=== PATIENT | male | born 1960 | race Caucasian/White ===

== ENCOUNTER 2020-07-23 11:00 | Emergency (ER) | payer BC ==
--- NOTE | 2020-07-23 11:45 | RAD REPORT ---
EXAM DESCRIPTION: RAD - Hand Right 3 View - 07/23/2020 11:38 am CLINICAL HISTORY: PAIN COMPARISON: <Comparisons> FINDINGS: Soft tissue laceration is seen involving the distal tips of the third and fourth finger. N o fracture or underlying radiopaque foreign body seen.
[2020-07-23] MEDS ORDERED: BUPIVACAINE 0.5% PF 10 ML VIAL ONE (12:18)
[2020-07-23] MEDS ORDERED: LIDOCAINE 1% MPF 30 ML VIAL ONE (12:18)
--- NOTE | 2020-07-23 12:38 | EDPHYS ---
Physician Documentation [facility] Name: Henri Mehta Age: 60 yrs Sex: Male : 1960 Arrival Date: 07/23/2020 Time: 11:01 Bed 7 Private MD: ED Physician Ramo Wright HPI: 07/23 12:30 This 60 yrs old Male presents to ER via Ambulatory with complaints of alfred Laceration. 12:30 The patient or guardian reports pain, swelling, tenderness. The complaints affect the alfred right hand diffusely, palmar aspect of distal phalanx of right ring finger and palmar aspect of distal phalanx of right middle finger. Context: The problem was sustained at home. Onset: The symptoms/episode began/occurred just prior to arrival. Modifying factors: The symptoms are alleviated by nothing, the symptoms are aggravated by movement, dependent position. Associated signs and symptoms: The patient has no apparent associated signs or symptoms. Severity of symptoms: At their worst the symptoms were mild, in the emergency department the symptoms are unchanged. The patient has not experienced similar symptoms in the past. Historical: - Allergies: 11:08 Sulfa (Sulfonamide Antibiotics); bp - PMHx: 11:08 HIV; bp - Immunization history:: Last tetanus immunization: unknown. - Social history:: Smoking status: Patient denies any tobacco usage or history of. - Family history:: not pertinent. ROS: 12:30 Constitutional: Negative for fever, chills, and weight loss, Eyes: Negative for injury, alfred pain, redness, and discharge, ENT: Negative for injury, pain, and discharge, Neck: Negative for injury, pain, and swelling, Cardiovascular: Negative for chest pain, palpitations, and edema, Respiratory: Negative for shortness of breath, cough, wheezing, and pleuritic chest pain, Abdomen/GI: Negative for abdominal pain, nausea, vomiting, diarrhea, and constipation, Back: Negative for injury and pain, : Negative for injury, bleeding, discharge, and swelling, Skin: Negative for injury, rash, and discoloration, Neuro: Negative for headache, weakness, numbness, tingling, and seizure, Psych: Negative for depression, anxiety, suicide ideation, homicidal ideation, and hallucinations, Allergy/Immunology: Negative for hives, rash, and allergies, Endocrine: Negative for neck swelling, polydipsia, polyuria, polyphagia, and marked weight changes, Hematologic/Lymphatic: Negative for swollen nodes, abnormal bleeding, and unusual bruising. 12:30 MS/extremity: Positive for decreased range of motion, laceration, pain, of the palmar aspect of distal phalanx of right ring finger and palmar aspect of distal phalanx of right middle finger. Exam: 12:30 Constitutional: This is a well developed, well nourished patient who is awake, alert, alfred and in no acute distress. Head/Face: Normocephalic, atraumatic. Eyes: Pupils equal round and reactive to light, extra-ocular motions intact. Lids and lashes normal. Conjunctiva and sclera are non-icteric and not injected. Cornea within normal limits. Periorbital areas with no swelling, redness, or edema. ENT: Nares patent. No nasal discharge, no septal abnormalities noted. Tympanic membranes are normal and external auditory canals are clear. Oropharynx with no redness, swelling, or masses, exudates, or evidence of obstruction, uvula midline. Mucous membranes moist. Neck: Trachea midline, no thyromegaly or masses palpated, and no cervical lymphadenopathy. Supple, full range of motion without nuchal rigidity, or vertebral point tenderness. No Meningismus. Chest/axilla: Normal chest wall appearance and motion. Nontender with no deformity. No lesions are appreciated. Cardiovascular: Regular rate and rhythm with a normal S1 and S2. No gallops, murmurs, or rubs. Normal PMI, no JVD. No pulse deficits. Respiratory: Lungs have equal breath sounds bilaterally, clear to auscultation and percussion. No rales, rhonchi or wheezes noted. No increased work of breathing, no retractions or nasal flaring. Abdomen/GI: Soft, non-tender, with normal bowel sounds. No distension or tympany. No guarding or rebound. No evidence of tenderness throughout. Back: No spinal tenderness. No costovertebral tenderness. Full range of motion. Male : Normal genitalia with no discharge or lesions. Skin: Warm, dry with normal turgor. Normal color with no rashes, no lesions, and no evidence of cellulitis. Neuro: Awake and alert, GCS 15, oriented to person, place, time, and situation. Cranial nerves II-XII grossly intact. Motor strength 5/5 in all extremities. Sensory grossly intact. Cerebellar exam normal. Normal gait. Psych: Awake, alert, with orientation to person, place and time. Behavior, mood, and affect are within normal limits. 12:30 Musculoskeletal/extremity: Extremities: laceration, pain, ROM: full active range of motion, full passive range of motion, Circulation is intact in all extremities. Sensation intact. Compartment Syndrome exam of affected extremity: is normal. Vital Signs: 11:01 BP 118 / 71; Pulse 65; Resp 16; Temp 98; Pulse Ox 99% ; bp 12:08 BP 128 / 70; Pulse 61; Resp 18; Pulse Ox 100% on R/A; zb 13:09 BP 105 / 72; Pulse 65; Resp 18; Pulse Ox 100% on R/A; zb 14:00 BP 114 / 74; Pulse 62; Resp 18; Pulse Ox 100% on R/A; zb Laceration: 12:30 Wound Repair of 3cm ( 1.2in ) subcutaneous laceration to palmar aspect of distal alfred phalanx of right middle finger and palmar aspect of distal phalanx of right ring finger. Skin/tissue flap noted.. Distal neuro/vascular/tendon intact. Anesthesia: Digital block administered with 5 mls of 1% lidocaine, Digital block administered with 5 mls of 0.5% marcaine. Wound prep: Moderate cleansing with betadine by wy. Skin closed with 8 5-0 Prolene using interrupted sutures and sterile technique. Dressed with Neosporin, non-adherent dressing. Patient tolerated well. MDM: 11:15 Patient medically screened. [facility] 12:34 Differential diagnosis: open fracture. Data reviewed: vital signs, nurses notes, [facility] radiologic studies, plain films. Data interpreted: senior peoplesoft developer: not applicable for this patient encounter. rate is 65 beats/min, rhythm is regular, Pulse oximetry: on room air is 99 %. Test interpretation: by ED physician or midlevel provider: plain radiologic studies. Counseling: I had a detailed discussion with the patient and/or guardian regarding: the historical points, exam findings, and any diagnostic results supporting the discharge/admit diagnosis, radiology results. 07/23 11:04 Order name: XRAY Hand RIGHT 3 View; Complete Time: 12:27 bp 07/23 12:29 Order name: Suture Tray at Bedside; Complete Time: 12:41 [facility] Administered Medications: 12:30 Drug: Lidocaine (1 %) 5 ml {Note: AT B/S FOR LMP.} Volume: 5 ml; Route: Infiltration; bp 13:30 Follow up: Response: No adverse reaction zb 12:30 Drug: Bupivacaine (0.5 %) 5 ml {Note: AT B/S.} Volume: 10 ml; Route: Infiltration; bp 13:30 Follow up: Response: No adverse reaction zb 12:30 Drug: Neosporin Ointment 1 application Route: Topical; Site: affected area; bp 14:09 Follow up: Response: No adverse reaction zb 12:40 Drug: KeFLEX 500 mg Route: PO; zb 13:29 Follow up: Response: No adverse reaction zb Disposition: 07/23/20 12:37 Discharged to Home. Impression: Laceration without foreign body of right hand - 3rd and 4th volar tips. - Condition is Stable. - Discharge Instructions: Laceration Care, Adult, Laceration Care, Adult, [id number]. - Prescriptions for Keflex 500 mg Oral Capsule - take 1 capsule by ORAL route every 6 hours for 7 days; 28 capsule. Tylenol- Codeine #3 300-30 mg Oral Tablet - take 2 tablets by ORAL route every 6 hours As needed; 24 tablet. - Medication Reconciliation Form, Thank You Letter, Antibiotic Education, Prescription Opioid Use form. - Follow up: Private Physician; When: 2 - 3 days; Reason: Recheck today's complaints, Re-evaluation by your physician. Follow up: Berry Garcia MD; When: 1 - 2 days; Reason: Recheck today's complaints, Re-evaluation by your physician. - Problem is new. - Symptoms have improved. Signatures: Dispatcher [employer] EDMS Ramo Wright MD MD cha Peltier, Brian, RN RN Regla Hernandez RN RN zb Corrections: (The following items were deleted from the chart) 11:08 11:05 Allergies: No Known Allergies; bp bp 11:08 11:05 Home Meds: None; bp bp 11:08 11:05 PMHx: None; bp bp 13:59 12:37 07/23/2020 12:37 Discharged to Home. Impression: Laceration without foreign body zb of right hand - 3rd and 4th volar tips. Condition is Stable. Forms are Medication Reconciliation Form, Thank You Letter, Antibiotic Education, Prescription Opioid Use. Follow up: Private Physician; When: 2 - 3 days; Reason: Recheck today's complaints, Re-evaluation by your physician. Follow up: Berry Garcia; When: 1 - 2 days; Reason: Recheck today's complaints, Re-evaluation by your physician. Problem is new. Symptoms have improved. alfred
--- NOTE | 2020-07-23 12:38 | ER ---
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 Coronavirus screen: At this time, the client does not indicate any symptoms associated with coronavirus-19. Ebola Screen: No symptoms or risks identified at this time. Complicating Factors: There are no complicating factors for this patient. Initial Sepsis Screen: Does the patient meet any 2 criteria? No. Patient's initial sepsis screen is negative. Does the patient have a suspected source of infection? No. Patient's initial sepsis screen is negative. Risk Assessment: Do you want to hurt yourself or someone else? Patient reports no desire to harm self or others. Onset of symptoms was July 23, 2020 at 10:40. 11:01 Method Of Arrival: Ambulatory bp 11: Acuity: SUNG 3 bp Triage Assessment: 11:08 General: Appears distressed, uncomfortable, Behavior is cooperative, appropriate for bp age, agitated, anxious. Pain: Complains of pain in right hand. EENT: No deficits noted. Neuro: No deficits noted. Cardiovascular: Rhythm is sinus rhythm. Respiratory: No deficits noted. GI: No signs and/or symptoms were reported involving the gastrointestinal system. : No signs and/or symptoms were reported regarding the genitourinary system. Derm: No deficits noted. Musculoskeletal: No deficits noted. Injury Description: Laceration sustained to right hand. Historical: - Allergies: 11:08 Sulfa (Sulfonamide Antibiotics); bp - PMHx: 11:08 HIV; bp - Immunization history:: Last tetanus immunization: unknown. - Social history:: Smoking status: Patient denies any tobacco usage or history of. - Family history:: not pertinent. Screenin:10 Abuse screen: Denies threats or abuse. Denies injuries from another. Nutritional bp screening: No deficits noted. Tuberculosis screening: No symptoms or risk factors identified. Fall Risk None identified. Assessment: 11:06 General: Appears distressed, uncomfortable, slender, well groomed, Behavior is zb cooperative, appropriate for age, anxious. Pain: Denies pain. Complains of pain in palmar aspect of distal phalanx of right ring finger and palmar aspect of distal phalanx of right middle finger. Neuro: No deficits noted. Level of Consciousness is awake, alert, obeys commands, Oriented to person, place, time, situation. Cardiovascular: No deficits noted. Denies chest pain, diaphoresis. Respiratory: Airway is patent Trachea midline Respiratory effort is even, unlabored. GI: No deficits noted. Abdomen is flat. : No signs and/or symptoms were reported regarding the genitourinary system. EENT: No signs and/or symptoms were reported regarding the EENT system. Derm: Skin is healthy with good turgor, Skin is pale. Musculoskeletal: Circulation, motion, and sensation intact. Injury Description: Laceration sustained to palmar aspect of distal phalanx of right ring finger and palmar aspect of distal phalanx of right middle finger is clean, was sustained less than 30 minutes ago. is bleeding moderately. 11:09 General: SEE TRIAGE NOTE. Injury Description: Laceration sustained to palmar aspect of bp distal phalanx of right ring finger and palmar aspect of distal phalanx of right middle finger is not bleeding, was sustained 30-60 minutes ago. is bleeding a small amount. 12:00 Reassessment: Patient appears in no apparent distress at this time. Patient and/or zb family updated on plan of care and expected duration. Pain level reassessed. Patient is alert, oriented x 3, equal unlabored respirations, skin warm/dry/pink. 13:14 Reassessment: d/c pending provider sutures. ph Vital Signs: 11:01 BP 118 / 71; Pulse 65; Resp 16; Temp 98; Pulse Ox 99% ; bp 12:08 BP 128 / 70; Pulse 61; Resp 18; Pulse Ox 100% on R/A; zb 13:09 BP 105 / 72; Pulse 65; Resp 18; Pulse Ox 100% on R/A; zb 14:00 BP 114 / 74; Pulse 62; Resp 18; Pulse Ox 100% on R/A; zb ED Course: 11:01 Patient arrived in ED. bp 11:03 Triage completed. bp 11:06 Regla Segovia, RN is Primary Nurse. zb 11:08 Arm band placed on. bp 11:10 Patient has correct armband on for positive identification. Bed in low position. Call bp light in reach. Side rails up X2. 11:15 Ramo Wright MD is Attending Physician. alfred 11:38 XRAY Hand RIGHT 3 View In Process Unspecified. EDMS 12:36 Berry Garcia MD is Referral Physician. alfred 14:00 No provider procedures requiring assistance completed. Patient did not have IV access zb during this emergency room visit. Administered Medications: 12:30 Drug: Lidocaine (1 %) 5 ml {Note: AT B/S FOR LMP.} Volume: 5 ml; Route: Infiltration; bp 13:30 Follow up: Response: No adverse reaction zb 12:30 Drug: Bupivacaine (0.5 %) 5 ml {Note: AT B/S.} Volume: 10 ml; Route: Infiltration; bp 13:30 Follow up: Response: No adverse reaction zb 12:30 Drug: Neosporin Ointment 1 application Route: Topical; Site: affected area; bp 14:09 Follow up: Response: No adverse reaction zb 12:40 Drug: KeFLEX 500 mg Route: PO; zb 13:29 Follow up: Response: No adverse reaction zb Outcome: 12:37 Discharge ordered by . alfred 13:59 Patient left the ED. zb 14:00 Discharged to home ambulatory. zb 14:00 Condition: good 14:00 Discharge instructions given to patient, Instructed on discharge instructions, follow up and referral plans. medication usage, Demonstrated understanding of instructions, follow-up care, medications, Prescriptions given X 2. Signatures: Dispatcher [employer] EDKY Ramo Wright MD MD cha Hall, Patricia, RN RN Evaristo Alvarez RN RN bp Brown, Zipporah, RN RN zb Corrections: (The following items were deleted from the chart) 11:08 11:05 Allergies: No Known Allergies; bp bp 11:08 11:05 Home Meds: None; bp bp 11:08 11:05 PMHx: None; bp bp 11:21 11:06 General: Appears in no apparent distress. uncomfortable, slender, well groomed, zb Behavior is cooperative, appropriate for age, anxious, zb
[2020-07-23] MEDS ORDERED: CEPHALEXIN 250 MG CAP ONE (12:50)
[2020-07-23 14:44] VITALS: TEMP 98
[2020-07-23 14:45] VITALS: O2SAT 100
[2020-07-23 14:47] VITALS: BP 105/72
== END 2020-07-23 13:59 | disposition home or self-care (01) ==
LOC: ER 11:00
PROC: 0JQJ0ZZ Repair Right Hand Subcutaneous Tissue and Fascia, Open Approach (ICD-10-PCS; principal; 2020-07-23)
DX: S61.212A Laceration without foreign body of right middle finger without damage to nail, initial encounter (principal); W29.8XXA Contact with other powered hand tools and household machinery, initial encounter; Y93.9 Activity, unspecified; Y92.009 Unspecified place in unspecified non-institutional (private) residence as the place of occurrence of the external cause; Z88.2 Allergy status to sulfonamides; Z21 Asymptomatic human immunodeficiency virus [HIV] infection status
CPT/HCPCS: 99284

== ENCOUNTER 2021-08-19 15:18 | Emergency (ER) | payer BC ==
--- OUTSIDE RECORDS SUMMARY | 2021-08-19 15:21 | XMS REPORT | Continuity of Care Document ---
:1960 Author Organization [facility] t Address [address] [place] [id number] Care Team Providers Name Role Phone Ana_Sari Attending Clinician Unavailable Berna PROCTOR Attending Clinician Unavailable Ana_Sari Admitting Clinician Unavailable Payers Payer Name Policy Type Policy Number Effective Date Expiration Date S our[place] [id number] 2017 00:00:00 [facility] [id number] 2017 00:00:00 [place] Problems Condition Condition Condition Status Onset Resolution Last Treating Co mments Source Name Details Category Date Date Treatment Clinician Date Lower Lower Problem Active 2020-09 [facility] urinary Urinary 0-22 Family tract Tract 00:00: Practic symptoms Symptoms 00 e due to Due to benign Benign prostatic Prostatic hypertroph Hypertroph y y Chronic Chronic Problem Active 2020-09 [facility] insomnia Insomnia 0-22 Family 00:00: Practic 00 e Genital Genital Problem Active 2020-09 [facility] herpes Herpes 0-21 Family simplex Simplex 00:00: Practic type 2 Type 2 00 e Mixed Mixed Problem Active [facility] hyperlipid Hyperlipid 4-07 [facility] emia emia 00:00: Practic 00 e Carcinoma Carcinoma Problem Active Earlene lana of skin of of Skin of 4-07 [facility] upper limb Upper Limb 00:00: Pr actic 00 e 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 P ractice Medications Ordered Filled Start Stop Current Ordering Indication Dosage Frequency Signature Comments Components Source Medication Medication Date Date Medication? Clinician (SIG) Name Name famciclovir famciclovir No famciclovi [facility] 250 mg 250 mg r 250 mg Family tablet TK 1 tablet TK 1 tablet TK Practic T PO BID T PO BID 1 T PO BID e Juluca 50 Juluca 50 No Juluca 50 [facility] mg-25 mg mg-25 mg mg-25 mg Fam tabby tablet TAKE tablet TAKE tablet Practic 1 TABLET BY 1 TABLET BY TAKE 1 e MOUTH EVERY MOUTH EVERY TABLET BY DAY DAY MOUTH EVERY DAY Immunizations Ordered Immunization Filled Immunization Date Status Commen ts Source Name Name influenza, influenza, 2021-07-[address] [facility] recombinant, recombinant, 13:07:00 Practice quadrIvalent,injecta quadrIvalent,injecta ble, preservative ble, preservative free free SARS-COV-2 SARS-COV-2 2020-12-[address] [facility] (COVID-19) vaccine, (COVID-19) vaccine, 00:00:00 Practice UNSPECIFIED UNSPECIFIED SARS-COV-2 SARS-COV-2 2020-11-[address] [facility] (COVID-19) vaccine, (COVID-19) vaccine, 00:00:00 Practice UNSPECIFIED UNSPECIFIED Vital Signs Vital Name Observation Time Observation Value Comments Source BP Diastolic 2021-07-04 00:00:00 72 mm[Hg] [facility] Height 2021-07-04 00:00:00 67 [in_i] [facility] BMI (Body Mass 2021-07-04 00:00:00 22.1 kg/m2 [facility] Index) Practice BP Systolic 2021-07-04 00:00:00 120 mm[Hg] [facility] Body Weight 2021-07-04 00:00:00 141.2 [lb_av] [facility] Procedures Procedure Date / Time Performed Performing Clinician Liz e Colon Surgery [facility] Sinus Surgery [facility] Procedure Practice Plan of Care Planned Activity Planned Date Details Comments Source Diagnostic Test 2021-07-04 HIV-1 RNA, [facility] Fami ly Pending 00:00:00 quantitative, PCR, Practice serum or plasma [code = HIV-1 RNA, quantitative, PCR, serum or plasma] Diagnostic Test 2021-07-04 CBC w/ auto diff [facility] Family Pending 00:00:00 [code = CBC w/ auto Practice diff] Diagnostic Test 2021-07-04 CMP, serum or plasma [facility] Family Pending 00:00:00 [code = CMP, serum Practice or plasma] Diagnostic Test 2021-07-04 lymphocyte subset [facility] Family Pending 00:00:00 panel, serum [code = Practic e lymphocyte subset panel, serum] Diagnostic Test 2021-07-04 lipid panel, serum [facility] Family Pending 00:00:00 [code = lipid panel, Practic e serum] Future Appointment 2021-10-02 Trevor Perez, [address] Family 14:45:00 [facility] ; Practice [address], [place] [address] Encounters Start End Encounter Admission Attending Care Care Encounter Source Date/Time Date/Time Type Type Clinicians Facility Department ID 2021-07-14 2021-07-14 Outpatient Flores_A VFP VFP [id number] [facility] 12:05:00 12:05:00 [id number] Family Practic e 2021-07-04 2021-07-04 Outpatient Flores_A VFP VFP [id number] [facility] 01:16:00 01:16:00 [id number] Family Practic e 2021-07-04 2021-07-04 Trevor VFP [place] - [id number] [facility] 00:00:00 00:00:00 [facility] Family PerezAlicia - Janis love MD: [id number] [facility] [place] [address] , [address], [place] [address] , Ph. 2021-04-04 2021-04-04 Outpatient Flores_A VFP VFP [id number] [id number] [facility] 02:30:00 02:30:00 [id number] Family Practic e 2021-04-04 2021-04-04 Outpatient Flores_A VFP VFP [id number] [facility] 02:30:00 02:30:00 [id number] Family Practic e 2020-12-18 2020-12-18 Outpatient Fredo PROCTOR, [facility] [id number] [facility] 13:50:00 13:50:00 DAMION vargas [facility] 2020-11-20 2020-11-20 Outpatient [facility] [id number] [facility] 13:30:00 13:30:00 [facility] Results This patient has no known results.
[2021-08-19] MEDS ORDERED: BUPIVACAINE 0.5% PF 10 ML VIAL ONE (16:10)
--- NOTE | 2021-08-19 17:10 | RAD REPORT ---
EXAM DESCRIPTION: RAD - Hand Right 3 View - 08/19/2021 4:47 pm CLINICAL HISTORY: Right hand pain status post injury FINDINGS: No fracture or dislocation is seen. 1 millimeter density within the dorsal soft tissues of the second DIP equivocal for foreign body and should be correlated clinically
--- NOTE | 2021-08-19 18:31 | ER ---
Nurse's Notes [facility] Name: Henri Mehta Age: 61 yrs Sex: Male : 1960 Arrival Date: 08/19/2021 Time: 15:22 Bed 11 Private MD: Diagnosis: Finger Laceration Presentation: 08/19 15:41 Chief complaint: Patient states: I was using my trimmer operator today and my right index ld1 finger got cut. Coronavirus screen: At this time, the client does not indicate any symptoms associated with coronavirus-19. Ebola Screen: No symptoms or risks identified at this time. Complicating Factors: There are no complicating factors for this patient. Initial Sepsis Screen: Does the patient meet any 2 criteria? No. Patient's initial sepsis screen is negative. Does the patient have a suspected source of infection? No. Patient's initial sepsis screen is negative. Risk Assessment: Do you want to hurt yourself or someone else? Patient reports no desire to harm self or others. Onset of symptoms was August 19, 2021 at 15:42. 15:41 Method Of Arrival: Ambulatory ld1 15:41 Acuity: SUNG 3 ld1 Triage Assessment: 15:42 General: Appears in no apparent distress. uncomfortable, Behavior is cooperative, ld1 appropriate for age, anxious. Pain: Complains of pain in dorsal aspect of distal phalanx of right index finger and dorsal aspect of middle phalanx of right index finger Pain does not radiate. Pain currently is 8 out of 10 on a pain scale. Quality of pain is described as throbbing, Pain began suddenly, Is continuous. EENT: No signs and/or symptoms were reported regarding the EENT system. Neuro: Level of Consciousness is awake, alert, obeys commands, Oriented to person, place, time, situation, Appropriate for age. Cardiovascular: Capillary refill < 3 seconds Patient's skin is warm and dry. Respiratory: Airway is patent Respiratory effort is even, unlabored, Respiratory pattern is regular, symmetrical. GI: Abdomen is flat, non-distended. : No signs and/or symptoms were reported regarding the genitourinary system. Derm: No signs and/or symptoms reported regarding the dermatologic system. Musculoskeletal: No signs and/or symptoms reported regarding the musculoskeletal system. Injury Description: Laceration sustained to dorsal aspect of distal phalanx of right index finger, dorsal aspect of middle phalanx of right index finger and right index fingernail. Historical: - Allergies: 15:42 Sulfa (Sulfonamide Antibiotics); ld1 - Home Meds: 15:42 Juluca 50-25 mg oral tab 1 tab once daily [Active]; ld1 - PMHx: 15:42 HIV; ld1 - PSHx: 15:42 None; ld1 - Immunization history:: Adult Immunizations up to date, Client reports receiving the 2nd dose of the Covid vaccine. - Social history:: Smoking status: Patient denies any tobacco usage or history of. Patient/guardian denies using alcohol. Vital Signs: 15:41 BP 146 / 89; Pulse 96; Resp 19; Temp 98.3(O); Pulse Ox 97% on R/A; Weight 63.96 kg; ld1 Height 5 ft. 7 in. (170.18 cm); Pain 8/10; 15:41 Body Mass Index 22.08 (63.96 kg, 170.18 cm) ld1 ED Course: 15:22 Patient arrived in ED. mr 15:42 Triage completed. ld1 15:42 Arm band placed on right wrist. 1 15:47 Mary Liu, RN is Primary Nurse. [facility] 15:54 Jayson Oviedo PA is PHCP. [facility] 15:54 Ramo Wright MD is Attending Physician. [facility] 16:47 Hand Right 3 View XRAY In Process Unspecified. EDMS 17:56 Aluminum finger splint applied to palmar aspect of middle phalanx of right index em1 finger. Wound care: was cleaned with Hibiclens. Wound care: was wet to dry dressing. 18:30 Tony Velazquez MD is Referral Physician. [facility] Administered Medications: No medications were administered Outcome: 18:30 Discharge ordered by . [facility] 18:35 Patient left the ED. [facility] Signatures: Dispatcher [employer] EDMS Jayson Oviedo PA PA jannet Mark Ellie Long, Robert em1 Rosamaria Orona RN RN [facility] Mary Liu RN RN [facility]
--- NOTE | 2021-08-19 18:31 | EDPHYS ---
Physician Documentation [facility] Name: Henri Mehta Age: 61 yrs Sex: Male : 1960 Arrival Date: 08/19/2021 Time: 15:22 Bed 11 Private MD: ED Physician Ramo Wright HPI: 08/19 15:54 This 61 yrs old Male presents to ER via Ambulatory with complaints of Laceration - jmm Finger. 15:54 The patient or guardian reports injury, a laceration. Onset: The symptoms/episode jmm began/occurred acutely, just prior to arrival. Modifying factors: The symptoms are alleviated by nothing, the symptoms are aggravated by nothing. Associated signs and symptoms: Pertinent negatives: decreased sensation distally, fever, numbness distally, tingling distally. Is a 61-year-old male with history of HIV the presents emerged department with complaints of laceration to the right index finger. This occurred while the patient was using a heel seat trimmer. Patient states that he saw a large piece of how he described meat. Patient cover the wound quickly. Patient states he is up-to-date on tetanus immunization.. Historical: - Allergies: 15:42 Sulfa (Sulfonamide Antibiotics); ld1 - Home Meds: 15:42 Juluca 50-25 mg oral tab 1 tab once daily [Active]; ld1 - PMHx: 15:42 HIV; ld1 - PSHx: 15:42 None; ld1 - Immunization history:: Adult Immunizations up to date, Client reports receiving the 2nd dose of the Covid vaccine. - Social history:: Smoking status: Patient denies any tobacco usage or history of. Patient/guardian denies using alcohol. ROS: 15:54 Constitutional: Negative for fever, chills, and weight loss, Cardiovascular: Negative jmm for chest pain, palpitations, and edema, Respiratory: Negative for shortness of breath, cough, wheezing, and pleuritic chest pain. 15:54 MS/extremity: Positive for injury or acute deformity, pain. 15:54 All other systems are negative. Exam: 15:54 Constitutional: This is a well developed, well nourished patient who is awake, alert, jmm and in no acute distress. Head/Face: atraumatic. Eyes: EOMI, no conjunctival erythema appreciated ENT: Moist Mucus Membranes Neck: Trachea midline, Supple Chest/axilla: Normal chest wall appearance and motion. Cardiovascular: Regular rate and rhythm. No edema appreciated Respiratory: Normal respirations, no respiratory distress appreciated Abdomen/GI: Non distended, soft Back: Normal ROM 15:54 Musculoskeletal/extremity: Full range of motion full range of motion and strength against resistance at the right index PIP and DIP. 15:54 Skin: Macerated skin macerated skin noted to the mid and distal phalanx right. 15:54 Neuro: Motor: is normal. Vital Signs: 15:41 BP 146 / 89; Pulse 96; Resp 19; Temp 98.3(O); Pulse Ox 97% on R/A; Weight 63.96 kg; ld1 Height 5 ft. 7 in. (170.18 cm); Pain 8/10; 15:41 Body Mass Index 22.08 (63.96 kg, 170.18 cm) ld1 MDM: 15:54 Patient medically screened. [place] 18:29 Data reviewed: vital signs, nurses notes. Counseling: I had a detailed discussion with [facility] the patient and/or guardian regarding: the historical points, exam findings, and any diagnostic results supporting the discharge/admit diagnosis, radiology results, the need for outpatient follow up, to return to the emergency department if symptoms worsen or persist or if there are any questions or concerns that arise at home. 18:29 ED course: Physical exam findings did not show signs of tendon injury. Patient advised [facility] follow with hand surgery and prescribed antibiotics. Patient does state that he is in [facility].. 08/19 16:29 Order name: Hand Right 3 View XRAY; Complete Time: 17:12 [facility] 08/19 17:33 Order name: Misc. Order: clean finger, wet to dry; Complete Time: 17:56 [facility] Administered Medications: No medications were administered Disposition: 08/20 10:33 Co-signature as Attending Physician, Ramo Wright MD I agree with the assessment and [place] plan of care. Disposition Summary: 08/19/21 18:30 Discharge Ordered Location: Home [facility] Condition: Stable [facility] Diagnosis - Finger Laceration [facility] Followup: [facility] - With: Tony Velazquez MD - When: 2 - 3 days - Reason: Recheck today's complaints, Continuance of care, Re-evaluation by your physician Discharge Instructions: - Discharge Summary Sheet jmm - Nonsutured Laceration Care [facility] Forms: - Medication Reconciliation Form jmjannet - Thank You Letter rach - Antibiotic Education rach - Prescription Opioid Use [facility] Prescriptions: - Cephalexin 500 mg Oral Capsule - take 1 capsule by ORAL route every 6 hours for 10 days; 40 capsule; Refills: 0, jmm Product Selection Permitted Signatures: Dispatcher [employer] EDRamo Caballero MD MD cha Mickail, Joel, PA PA jmm Dibbern, Lauren, RN RN ld1
[2021-08-19 18:53] VITALS: BP 146/89; TEMP 98.3; O2SAT 97
== END 2021-08-19 18:35 | disposition home or self-care (01) ==
LOC: ER 15:18
DX: S61.210A Laceration without foreign body of right index finger without damage to nail, initial encounter (principal); Z21 Asymptomatic human immunodeficiency virus [HIV] infection status; Z88.2 Allergy status to sulfonamides
CPT/HCPCS: 99284

== ENCOUNTER 2023-01-12 19:55 | Emergency (ER) | payer BC ==
--- OUTSIDE RECORDS SUMMARY | 2023-01-12 20:37 | XMS REPORT | Continuity of Care Document ---
:1960 Author Organization [facility] t Address [address] [place] [address] Care Team Providers Name Role Phone Ana_Sari Attending Clinician Unavailable DAMION PROCTOR Attending Clinician Unavailable Ana_Sari Admitting Clinician Unavailable Payers Payer Name Policy Type Policy Number Effective Date Expiration Date [place] [id number] 2017 00:00:00 BCBS HEALTH [id number] 2017 00:00:00 [place] Problems Condition Condition Condition Status Onset Resolution Last Treating Co mments Source Name Details Category Date Date Treatment Clinician Date Polyarthro Polyarthro Problem Active 2021-09 [facility] uri uri 1-07 Family 00:00: Practic 00 e 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 5-19 Family disturbanc Disturbanc 00:00: Pr actic e e 00 e Lower Lower Problem Active 2020-09 [facility] urinary Urinary 0-22 Family tract Tract 00:00: Practic symptoms Symptoms 00 e due to Due to benign Benign prostatic Prostatic hypertroph Hypertroph y y Chronic Chronic Problem Active 2020-09 [facility] insomnia Insomnia 0-22 Family 00:00: Practic 00 e Genital Genital Problem Active 2020-09 [facility] herpes Herpes 0-21 Family simplex Simplex 00:00: Practic type 2 Type 2 00 e Mixed Mixed Problem Active [facility] hyperlipid Hyperlipid 4-07 Jose deluca emia emia 00:00: Practic 00 e Carcinoma Carcinoma Problem Active Earlene lana of skin of of Skin of 4-07 Fa sandrine upper limb Upper Limb 00:00: Pr actic 00 e 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 1-01 sandrine ciency ciency 00:00: Practic virus Virus 00 e infection Infection Allergies, Adverse Reactions, Alerts Allergy Allergy Status Severity Reaction(s) Onset Inactive Treating Comm ents Source Name Type Date Date Clinician SULFA Drug Active Hives 2017- [facility] (SULFONA Class 4-03 ity of MIDE 00:00: [place] ANTIBIOT 00 Medical I[facility]) Branch SULFA Allergy Active [facility] (SULFONA to Family [facility] substanc Practic ANTIBIOT e e ICS) Social History Smoking Status Start Date Stop Date Source Never Smoker [facility] Medications Ordered Filled Start Stop Current Ordering Indication Dosage Frequency Signature Comments Components Source Medication Medication Date Date Medication? Clinician (SIG) Name Name famciclovir famciclovir No famciclovi Jean 250 mg 250 mg r 250 mg Family tablet TK 1 tablet TK 1 tablet TK Practic T PO BID T PO BID 1 T PO BID e Juluca 50 Juluca 50 No 1 Q1D Juluca 50 [facility] mg-25 mg mg-25 mg mg-25 mg Fam tabby tablet Take tablet Take tablet Practic 1 tablet 1 tablet Take 1 e every day every day tablet by oral by oral every day route for route for by oral 90 days. 90 days. route for 90 days. trazodone trazodone No trazodone [facility] 50 mg 50 mg 50 mg Family tablet TAKE tablet TAKE tablet Practic 1 TO 2 1 TO 2 TAKE 1 TO e TABLETS BY TABLETS BY 2 TABLETS MOUTH AT MOUTH AT BY MOUTH BEDTIME BEDTIME AT BEDTIME famciclovir famciclovir No famciclovi Jean 250 mg 250 mg r 250 mg Family tablet TK 1 tablet TK 1 tablet TK Practic T PO BID T PO BID 1 T PO BID e Juluca 50 Juluca 50 No Juluca 50 [facility] mg-25 mg mg-25 mg mg-25 mg Fam tabby tablet TAKE tablet TAKE tablet Practic 1 TABLET BY 1 TABLET BY TAKE 1 e MOUTH EVERY MOUTH EVERY TABLET BY DAY DAY MOUTH EVERY DAY Multi Multi No Multi [facility] Vitamin Vitamin Vitamin Family Practic e trazodone trazodone No flozodondonta [facility] 50 mg 50 mg 50 mg Family tablet Take tablet Take tablet Practic 1 -2 1 -2 Take 1 -2 e tablets po tablets po tablets po at bedtime at bedtime at bedtime for 30 days for 30 days for 30 days Immunizations Ordered Immunization Filled Immunization Date Status Commen ts Source Name Name COVID-19, mRNA, COVID-19, mRNA, 2021-07-25 Completed [facility] LNP-S, PF, 30 LNP-S, PF, 30 00:00:00 Practice mcg/0.3 mL dose mcg/0.3 mL dose (Pfizer-BioNTech) ([employer]-BioNTech) COVID-19, mRNA, COVID-19, mRNA, 2021-07-25 Completed [facility] Family LNP-S, PF, 30 LNP-S, PF, 30 00:00:00 Practice mcg/0.3 mL dose mcg/0.3 mL dose (Pfizer-BioNTech) (Pfizer-BioNTech) influenza, influenza, 2021-07-04 Completed [facility] recombinant, recombinant, 13:07:00 Practice quadrIvalent,injecta quadrIvalent,injecta ble, preservative ble, preservative free free influenza, influenza, 2021-07-04 Completed [facility] recombinant, recombinant, 13:07:00 Practice quadrIvalent,injecta quadrIvalent,injecta ble, preservative ble, preservative free free COVID-19 COVID-19 2020-12-17 Completed [facility] (SARS-COV-2) (SARS-COV-2) 00:00:00 Practice vaccine, unspecified vaccine, unspecified COVID-19 COVID-19 2020-12-17 Completed [facility] (SARS-COV-2) (SARS-COV-2) 00:00:00 Practice vaccine, unspecified vaccine, unspecified COVID-19 COVID-19 2020-11-17 Completed [facility] (SARS-COV-2) (SARS-COV-2) 00:00:00 Practice vaccine, unspecified vaccine, unspecified COVID-19 COVID-19 2020-11-17 Completed [facility] (SARS-COV-2) (SARS-COV-2) 00:00:00 Practice vaccine, unspecified vaccine, unspecified Vital Signs Vital Name Observation Time Observation Value Comments Source BP Diastolic 2022-07-20 00:00:00 78 mm[Hg] [facility] Height 2022-07-20 00:00:00 67 [in_i] [facility] BMI (Body Mass 2022-07-20 00:00:00 21 kg/m2 [facility] Family Index) Practice BP Systolic 2022-07-20 00:00:00 124 mm[Hg] [facility] Body Weight 2022-07-20 00:00:00 134 [lb_av] [facility] BP Diastolic 2022-01-29 00:00:00 62 mm[Hg] [facility] Practice Height 2022-01-29 00:00:00 67 [in_i] [facility] Practice BMI (Body Mass 2022-01-29 00:00:00 21.4 kg/m2 [facility] e Family Index) Practice BP Systolic 2022-01-29 00:00:00 106 mm[Hg] [facility] Practice Body Weight 2022-01-29 00:00:00 136.4 [lb_av] [facility] Practice BP Diastolic 2021-10-02 00:00:00 70 mm[Hg] [facility] Practice Height 2021-10-02 00:00:00 67 [in_i] [facility] Practice BMI (Body Mass 2021-10-02 00:00:00 22.2 kg/m2 [facility] e Family Index) Practice BP Systolic 2021-10-02 00:00:00 138 mm[Hg] [facility] Practice Body Weight 2021-10-02 00:00:00 142 [lb_av] [facility] Practice BP Diastolic 2021-07-04 00:00:00 72 mm[Hg] [facility] Practice Height 2021-07-04 00:00:00 67 [in_i] [facility] Practice BMI (Body Mass 2021-07-04 00:00:00 22.1 kg/m2 [facility] e Family Index) Practice BP Systolic 2021-07-04 00:00:00 120 mm[Hg] [facility] Body Weight 2021-07-04 00:00:00 141.2 [lb_av] [facility] Procedures Procedure Date / Time Performed Performing Clinician Sour e Colonoscopy 2015-08-02 00:00:00 [facility] ly Practice Colon Surgery [facility] Unlisted Px Accessory [facility] Fa sandrine Sinus Practice Plan of Care Planned Activity Planned Date Details Comments Source Diagnostic Test 2022-07-20 cd4 T-cells, blood [facility] Pending 00:00:00 [code = cd4 T-cells, Practic e blood] Diagnostic Test 2022-07-20 CBC w/ auto diff [facility] Pending 00:00:00 [code = CBC w/ auto Practice diff] Diagnostic Test 2022-07-20 CMP, serum or plasma [facility] Pending 00:00:00 [code = CMP, serum Practice or plasma] Diagnostic Test 2022-07-20 lipid panel, serum [facility] Pending 00:00:00 [code = lipid panel, Practic e serum] Diagnostic Test 2022-07-20 vitamin D, Jean Fami ly Pending 00:00:00 25-hydroxy, total, Practice serum [code = vitamin D, 25-hydroxy, total, serum] Diagnostic Test 2022-07-20 HIV 1 + 2, Jean Muhammad ly Pending 00:00:00 meaningful use set Practice [code = HIV 1 + 2, meaningful use set] Future Appointment 2023-01-29 Trevormarisela Sousaes, [address] 00:00:00 [facility] ; Practice [address], [place] [address] Encounters Start End Encounter Admission Attending Care Care Encounter Source Date/Time Date/Time Type Type Clinicians Facility Department ID 2022-10-29 2022-10-29 Outpatient Flores_A VFP VFP [id number] 5-20 [facility] 00:00:00 00:00:00 [id number] Family Practic e 2022-07-20 2022-07-20 Outpatient Flores_A VFP VFP [id number] 5-20 [facility] 00:00:00 00:00:00 [id number] Family Practic e 2022-07-20 2022-07-20 Trevor VFP [place] - [id number] [facility] 00:00:00 00:00:00 Indra [facility] Family PerezAlicia - Pracyael love MD: [id number] [place] - e Post [facility] bibi [address], [place] [address] , Ph. 2022-05-11 2022-05-11 Outpatient Flores_A VFP VFP [id number] 5-20 [facility] 00:00:00 00:00:00 [id number] Family Practic e 2022-04-03 2022-04-03 Outpatient Flores_A VFP VFP [id number] 5-20 [facility] 04:58:00 04:58:00 [id number] Family Practic e 2022-02-27 2022-02-27 Outpatient Flores_A VFP VFP [id number] 5-20 [facility] 05:54:00 05:54:00 [id number] Family Practic e 2022-01-29 2022-01-29 Trevor Flores_A VFP [place] - [id number] 0 [facility] 00:00:00 00:00:00 [facility] [id number] Family Alicia Perez MD: [id number] , [address], [place] [address] , Ph. 2022-01-28 2022-01-28 Outpatient Flores_A VFP VFP [id number] 5-20 [facility] 11:39:00 11:39:00 [id number] Family Practic e 2021-10-05 2021-10-05 Outpatient Flores_A VFP VFP [id number] 5-20 [facility] 11:35:00 11:35:00 [id number] Family Practic e 2021-10-02 2021-10-02 Trevor Flores_A VFP [place] - [id number] 0 [facility] 00:00:00 00:00:00 [facility] [id number] Family Alicia Perez MD: [id number] , [address], [place] [address] , Ph. 2021-08-22 2021-08-22 Outpatient Flores_A VFP VFP [id number] 5-20 [facility] 09:41:00 09:41:00 [id number] Family Practic e 2021-08-21 2021-08-21 Outpatient Flores_A VFP VFP [id number] 5-20 [facility] 11:41:00 11:41:00 [id number] Family Practic e 2021-07-14 2021-07-14 Outpatient Flores_A VFP VFP [id number] 5-20 [facility] 12:05:00 12:05:00 [id number] Family Practic e 2021-07-04 2021-07-04 Trevor Flores_A VFP [place] - [id number] 0 [place] 00:00:00 00:00:00 [facility] [id number] Family Alicia Perez MD: [id number] , [address], [place] [address] , Ph. 2021-04-042021-04-04 Outpatient Florgiancarlo_A VFP VFP [id number] 5-20 [facility] 02:30:00 02:30:00 [id number] Family Practic e 2020-12-18 2020-12-18 Outpatient Fredo PROCTOR [facility] [id number] [facility] 13:50:00 13:50:00 DAMION [facility] 2020-11-20 2020-11-20 Outpatient [facility] [id number] 178 [facility] 13:30:00 13:30:00 [facility] Results This patient has no known results.
[2023-01-12] MEDS ORDERED: dexAMETHasone 10 MG/ML VIAL ONE (21:11)
[2023-01-12 21:12] LABS: Absolute Lymphocytes (CBC) 1.1 K/uL (0.7-4.9); Hematocrit 43.5 % (39.6-49.0); Lymphocytes % 9.1 % (15.3-44.8); MCV 93.3 fL (80-100); RBC Red Blood Cell Count 4.66 M/uL (4.33-5.43)
[2023-01-12 21:33] LABS: Albumin 4.1 g/dL (3.4-5.0); Bilirubin Total 0.8 mg/dL (0.2-1.0); Potassium 4.1 mEq/L (3.5-5.1); Protein, Total 8.3 g/dL (6.4-8.2)
--- NOTE | 2023-01-12 22:28 | RAD REPORT ---
EXAM DESCRIPTION: CT - Soft Tissue Neck W/Contr CLINICAL HISTORY: difficulty COMPARISON: No comparisons TECHNIQUE All CT scans are performed using dose optimization technique as appropriate and may includ e automated exposure control or mA/KV adjustment according to patient size. FINDINGS: Nasopharyngeal tissues are normal in appearance. Fossa Rosenmller are normal. Parapharyngeal fat triangles are symmetric. Tongue base structures are normal. Epiglottis and aryepiglottic folds are normal. Piriform sinuses are well aerated. The vocal cords are normal in appearance. Salivary glands are normal in appearance. Upper lung ghosh are clear. Included intracranial contents are unremarkable. Mucous retention cyst left maxillary sinus. IMPRESSION: No acute soft tissue abnormality within the neck. No abscess identified.
--- NOTE | 2023-01-12 23:05 | EDPHYS ---
Physician Documentation [facility] Name: Henri Mehta Age: 62 yrs Sex: Male : 1960 Arrival Date: 01/12/2023 Time: 19:55 Bed 18 Private MD: ED Physician Hua Whyte HPI: 01/13 04:27 This 62 yrs old Male presents to ER via Ambulatory with complaints of Difficulty rt Swallowing. 04:27 Patient presents to the ED with about 3 days of a sore throat, and odynophagia. Patient rt states that he has difficulty with swallowing. Patient has been on amoxicillin for about 2 days now, reports no improvement of the symptoms, is been taking Tylenol at home. Denies change in voice, difficulty breathing, other acute complaints. Symptoms are moderate severity, aching nature, not otherwise radiating, no other aggravating or alleviating factors. Historical: - Allergies: 01/12 20:26 Sulfa (Sulfonamide Antibiotics); vc1 - Home Meds: 20:26 Juluca 50-25 mg Oral tab 1 tab once daily [Active]; vc1 - PMHx: 20:26 HIV; vc1 - PSHx: 20:26 None; vc1 - Immunization history:: Client reports receiving the 2nd dose of the Covid vaccine. - Social history:: Smoking status: Patient denies any tobacco usage or history of. - Family history:: not pertinent. ROS: 01/13 04:27 Constitutional: Negative for fever, chills, and weight loss, Cardiovascular: Negative rt for chest pain, palpitations, and edema, Respiratory: Negative for shortness of breath, cough, wheezing, and pleuritic chest pain, Abdomen/GI: Negative for abdominal pain, nausea, vomiting, diarrhea, and constipation, Skin: Negative for injury, rash, and discoloration, Neuro: Negative for headache, weakness, numbness, tingling, and seizure, Psych: Negative for depression, anxiety, suicide ideation, homicidal ideation, and hallucinations. ENT: Positive for difficulty swallowing, sore throat. Exam: 04:27 Constitutional: This is a well developed, well nourished patient who is awake, alert, rt and in no acute distress. Head/Face: Normocephalic, atraumatic. Chest/axilla: Normal chest wall appearance and motion. Nontender with no deformity. No lesions are appreciated. Cardiovascular: Regular rate and rhythm with a normal S1 and S2. No gallops, murmurs, or rubs. Normal PMI, no JVD. No pulse deficits. Respiratory: Lungs have equal breath sounds bilaterally, clear to auscultation and percussion. No rales, rhonchi or wheezes noted. No increased work of breathing, no retractions or nasal flaring. Abdomen/GI: Soft, non-tender, with normal bowel sounds. No distension or tympany. No guarding or rebound. No evidence of tenderness throughout. Skin: Warm, dry with normal turgor. Normal color with no rashes, no lesions, and no evidence of cellulitis. MS/ Extremity: Pulses equal, no cyanosis. Neurovascular intact. Full, normal range of motion. Neuro: Awake and alert, GCS 15, oriented to person, place, time, and situation. Cranial nerves II-XII grossly intact. Motor strength 5/5 in all extremities. Sensory grossly intact. Cerebellar exam normal. Normal gait. Psych: Awake, alert, with orientation to person, place and time. Behavior, mood, and affect are within normal limits. 04:27 ENT: Posterior pharyngeal erythema with some mild exudates, no tonsillar hypertrophy, uvula is midline. Vital Signs: 01/12 20:23 BP 134 / 74; Pulse 66; Resp 15; Temp 98.1; Pulse Ox 98% ; Pain 10/10; vc1 20:27 Weight 63.5 kg; Height 5 ft. 7 in. ; vc1 23:12 BP 155 / 89; Pulse 74; Resp 18; Pulse Ox 100% on R/A; nj1 20:27 Body Mass Index 21.93 (63.50 kg, 170.18 cm) vc1 20:23 Pain Scale: Adult vc1 MDM: 20:28 Patient medically screened. rt 01/13 04:27 Differential diagnosis: Strep pharyngitis, viral infection, retropharyngeal abscess, rt peritonsillar abscess, Jackie's angina. Data reviewed: vital signs, nurses notes, lab test result(s), radiologic studies. Care significantly affected by the following chronic conditions: HIV. Counseling: I had a detailed discussion with the patient and/or guardian regarding: the historical points, exam findings, and any diagnostic results supporting the discharge/admit diagnosis, lab results, radiology results, the need for outpatient follow up. 01/12 20:29 Order name: CBC with Diff; Complete Time: 21:34 rt 01/12 20:29 Order name: CMP; Complete Time: 21:34 rt 01/12 20:29 Order name: CT Soft Tissue Neck W/contr; Complete Time: 22:34 rt Administered Medications: 01/12 21:05 Drug: Decadron - Dexamethasone IVP 10 mg Route: IVP; Site: left antecubital; nj1 23:06 Follow up: Response: No adverse reaction nj1 23:12 Drug: GI Cocktail without - (Maalox PO Suspension 30 ml, Lidocaine Mucous nj1 Membrane Liquid 2 % 15 ml) Route: PO; Disposition Summary: 01/12/23 23:04 Discharge Ordered Location: Home rt Problem: new rt Symptoms: are unchanged rt Condition: Stable rt Diagnosis - Streptococcal pharyngitis rt Followup: rt - With: Private Physician - When: 2 - 3 days - Reason: Discharge Instructions: - Discharge Summary Sheet rt - Pharyngitis rt Forms: - Medication Reconciliation Form rt - Thank You Letter rt - Antibiotic Education rt - Prescription Opioid Use rt Prescriptions: - Lidocaine Viscous - take 3 milliliter by ORAL route 4 times per day; 45 milliliter; Refills: 0, rt Product Selection Permitted Signatures: Dispatcher [employer] Carole Rick, RN RN vc1 Hua Whyte MD MD rt Gena Rodriguez RN RN nj1
--- NOTE | 2023-01-12 23:05 | ER ---
Nurse's Notes [facility] Name: Henri Mehta Age: 62 yrs Sex: Male : 1960 Arrival Date: 01/12/2023 Time: 19:55 Bed 18 Private MD: Diagnosis: Streptococcal pharyngitis Presentation: 01/12 20:23 Chief complaint: Patient states: "I thought I had strep throat because of my pain and vc1 itchy. I went to urgent care and they said it was strep and they gave me amoxicillin but I seem to be getting worse.". Coronavirus screen: Vaccine status: Patient reports receiving the 2nd dose of the covid vaccine. plus boosters; pfizer and moderna. Ebola Screen: Patient negative for fever greater than or equal to 101.5 degrees Fahrenheit, and additional compatible Ebola Virus Disease symptoms Patient denies exposure to infectious person. Patient denies travel to an Ebola-affected area in the 21 days before illness onset. No symptoms or risks identified at this time. Initial Sepsis Screen: Does the patient meet any 2 criteria? No. Patient's initial sepsis screen is negative. Does the patient have a suspected source of infection? No. Patient's initial sepsis screen is negative. Risk Assessment: Do you want to hurt yourself or someone else? Patient reports no desire to harm self or others. Onset of symptoms was January 08, 2023. 20:23 Method Of Arrival: Ambulatory vc1 20:23 Acuity: SUNG 3 vc1 Historical: - Allergies: 20:26 Sulfa (Sulfonamide Antibiotics); vc1 - Home Meds: 20:26 Juluca 50-25 mg Oral tab 1 tab once daily [Active]; vc1 - PMHx: 20:26 HIV; vc1 - PSHx: 20:26 None; vc1 - Immunization history:: Client reports receiving the 2nd dose of the Covid vaccine. - Social history:: Smoking status: Patient denies any tobacco usage or history of. - Family history:: not pertinent. Screenin:00 [facility] ED Fall Risk Assessment (Adult) History of falling in the last 3 months, nj1 including since admission No falls in past 3 months (0 pts) Confusion or Disorientation No (0 pts) Intoxicated or Sedated No (0 pts) Impaired Gait No (0 pts) Mobility Assist Device Used No (0 pt) Altered Elimination No (0 pt) Score/Fall Risk Level 0 - 2 = Low Risk Oriented to surroundings, Maintained a safe environment, Hourly rounding (assess needs \\T\\ fall precautionary measures) done. Abuse screen: Denies threats or abuse. Denies injuries from another. Nutritional screening: No deficits noted. Tuberculosis screening: No symptoms or risk factors identified. Assessment: 21:00 General: Appears in no apparent distress. comfortable, Behavior is calm, cooperative, nj1 appropriate for age. Pain: Complains of pain in Throat Pain currently is 10 out of 10 on a pain scale. Neuro: Level of Consciousness is awake, alert, obeys commands, Oriented to person, place, time, situation. Cardiovascular: Patient's skin is warm and dry. Respiratory: Airway is patent Respiratory effort is even, unlabored. EENT: Reports difficulty swallowing Sore throat. 22:00 Reassessment: Patient appears in no apparent distress at this time. No changes from [facility] previously documented assessment. Patient and/or family updated on plan of care and expected duration. Pain level reassessed. Patient is alert, oriented x 3, equal unlabored respirations, skin warm/dry/pink. 23:12 Reassessment: Patient appears in no apparent distress at this time. No changes from [facility] previously documented assessment. Patient and/or family updated on plan of care and expected duration. Pain level reassessed. Patient is alert, oriented x 3, equal unlabored respirations, skin warm/dry/pink. 23:32 Reassessment: Patient appears in no apparent distress at this time. Patient and/or aa9 family updated on plan of care and expected duration. Pain level reassessed. Patient is alert, oriented x 3, equal unlabored respirations, skin warm/dry/pink. Patient states feeling better. Vital Signs: 20:23 BP 134 / 74; Pulse 66; Resp 15; Temp 98.1; Pulse Ox 98% ; Pain 10/10; vc1 20:27 Weight 63.5 kg; Height 5 ft. 7 in. ; vc1 23:12 BP 155 / 89; Pulse 74; Resp 18; Pulse Ox 100% on R/A; nj1 20:27 Body Mass Index 21.93 (63.50 kg, 170.18 cm) vc1 20:23 Pain Scale: Adult vc1 ED Course: 19:58 Patient arrived in ED. mr 20:22 Hua Whyte MD is Attending Physician. rt 20:26 Triage completed. vc1 20:27 Arm band placed on left wrist. vc1 20:49 Radiology exam delayed due to lab results not completed at this time. (BUN/Creatinine) [id number] IV insertion attempt and/or patient not having appropriate IV at this time. 20:57 Gena Rodriguez, RN is Primary Nurse. nj1 21:00 Patient has correct armband on for positive identification. Bed in low position. Call nj light in reach. Side rails up X 1. 21:06 Inserted saline lock: 22 gauge in left antecubital area, using aseptic technique. Blood 1 collected. 21:06 CMP Sent. ah1 21:06 CBC with Diff Sent. ah1 22:21 CT Soft Tissue Neck W/contr In Process Unspecified. EDMS 23:32 No provider procedures requiring assistance completed. IV discontinued, intact, aa9 bleeding controlled, No redness/swelling at site. Pressure dressing applied. Administered Medications: 21:05 Drug: Decadron - Dexamethasone IVP 10 mg Route: IVP; Site: left antecubital; nj1 23:06 Follow up: Response: No adverse reaction nj1 23:12 Drug: GI Cocktail without - (Maalox PO Suspension 30 ml, Lidocaine Mucous nj1 Membrane Liquid 2 % 15 ml) Route: PO; Medication: 23:32 VIS not applicable for this client. aa9 Outcome: 23:04 Discharge ordered by . rt 23:32 Discharged to home ambulatory. aa9 23:32 Condition: stable 23:32 Discharge instructions given to patient, Instructed on discharge instructions, follow up and referral plans. Demonstrated understanding of instructions, follow-up care, medications, Prescriptions given X 1. 23:33 Patient left the ED. aa9 Signatures: Dispatcher [employer] EDTX Ellie Flores mr Carole Reddy RN RN vc1 Subha Hebert RN RN aa9 Ceci Snow [id number] Hua Whyte MD MD rt Gena Rodriguez, RN RN nj1 Sharon Orr [facility]
[2023-01-12] MEDS ORDERED: MAGNES/ALUMIN/SIMET 30ML UCUP ONE (23:15)
[2023-01-12] MEDS ORDERED: LIDOCAINE VISCOUS 2% SOLN 15 ML UDC ONE (23:15)
[2023-01-13 00:24] VITALS: TEMP 98.1
[2023-01-13 00:31] VITALS: BP 155/89; O2SAT 100
== END 2023-01-12 23:33 | disposition home or self-care (01) ==
LOC: ER 19:55
DX: J02.0 Streptococcal pharyngitis (principal); B20 Human immunodeficiency virus [HIV] disease; Z88.2 Allergy status to sulfonamides
CPT/HCPCS: 85025; 36415; 80053; 70491; 96374; 99284; Q9967; J1100